=== PATIENT | male | born 1950 | race Caucasian/White ===

== ENCOUNTER 2020-03-17 08:14 | Outpatient (CLI) | payer MEDICARE, SELFPAY ==
--- NOTE | 2020-03-17 08:22 | CT_ITS ---
WS: [id number] CT HEAD NONCONTRAST HISTORY: HYPOCHLOREMIA, HYPONATREMIA, CIGARETTE SMOKER, WEIGHT LOSS TECHNIQUE: Contiguous axial imaging performed through the brain in 2.5 mm imaging. Bone and soft tiss ue windows. All CT scans at [facility] use at least one of these dose optimization techniq ues: automated exposure control; mA and/or kV adjustment per patient size (includes targeted exams wh ere dose is matched to clinical indication); or iterative reconstruction. DLP: 992.04 mGycm COMPARISON: None available. No acute intracranial hemorrhage, midline shift or mass effect. Moderate atrophy involving the cerebellum and cerebrum. No areas of decreased attenuation in the brai nstem or dylan. Very mild chronic microvascular ischemic changes in the white matter. No prior large t erritory infarct. Ventricles: Ventricles and extra-axial spaces are slightly prominent on the basis of central and per ipheral atrophy. Paranasal sinuses: As visualized are clear. Mastoid air cells: Well pneumatized. Calvarium and scalp: Skull is intact with no soft tissue edema or swelling. CT/CT head wo con* [id number] IMPRESSION: 1. Moderate atrophy and mild chronic ischemic changes. 2. No hemorrhage or edema to suggest underlying neoplasm by unenhanced CT. If symptoms persist consider follow-up MRI brain with contrast if there is no cont raindication.
--- NOTE | 2020-03-17 08:22 | CT_ITS ---
WS: [id number] CT CHEST WITH INTRAVENOUS CONTRAST HISTORY: Cough and short of breath. Weight loss. TECHNIQUE: Contiguous 5 mm axial imaging performed on the thorax. Coronal and sagittal reformats are submitted. All CT scans at [facility] use at least one of these dose optimization techniq ues: automated exposure control; mA and/or kV adjustment per patient size (includes targeted exams wh ere dose is matched to clinical indication); or iterative reconstruction. CONTRAST: Omnipaque 300; 95 mL IV. DLP: 664.66 mGycm COMPARISON: None available. Lungs and central airway: Severe hyperinflation and emphysema. Linear area of atelectasis or scar in the medial segment of the RIGHT middle lobe measures 1.7 x 0.6 cm. There is a small amount of adjacen t groundglass attenuation. Favor this is probably scar atelectasis but will need follow-up. There is a small amount of mucus and debris in the endobronchial airway. Pleura: Normal. No pleural effusion. Heart and pericardium: Normal size heart. No pericardial effusion. Mediastinum and claudia: No mediastinum or hilar adenopathy. Vessels: Mild atherosclerosis of the aorta but no aneurysm. Pulmonary artery size is less than aorta. Chest wall and lower neck: No soft tissue masses. Upper abdomen: Visualized upper abdomen demonstrates diffuse moderate hepatic steatosis. No adrenal m ass. LEFT renal hypodensities are too small to characterize. Moderate size hiatal hernia. Osseous structures: Mild thoracic spondylosis. No destructive bone lesions. CT/CT chest w con* [id number] IMPRESSION: 1. Severe emphysema. 2. Linear opacification medial segment RIGHT middle lobe measuring 1.7 x 0.6 c m. Favor this is probably an area of atelectasis and/or scar. No prior studies for comparison. Recommend follow-up chest CT in 3-6 months. 3. Moderate size hiatal hernia. 4. Hepatic steatosis.
[2020-03-17] MEDS: iohexol 300 mg/mL 100 mL Btl IV (09:03)
== END 2020-03-17 08:15 | disposition home or self-care (01) ==
LOC: RADWPI 08:20
PROVIDERS: Family Provider Nurse Practitioner Family; PCP Nurse Practitioner Family; Visit Provider Nurse Practitioner Family
DX: R63.4 Abnormal weight loss (principal); F17.210 Nicotine dependence, cigarettes, uncomplicated; E87.8 Other disorders of electrolyte and fluid balance, not elsewhere classified; E87.1 Hypo-osmolality and hyponatremia; I67.82 Cerebral ischemia; R05 Cough; R06.02 Shortness of breath; J43.9 Emphysema, unspecified; K44.9 Diaphragmatic hernia without obstruction or gangrene; K76.0 Fatty (change of) liver, not elsewhere classified
CPT/HCPCS: 70450; 71260; Q9967

== ENCOUNTER 2021-10-06 05:46 | Day surgery (SDC) | payer MEDICARE, SELFPAY ==
[2021-08-23 13:30] VITALS: BMI 19.8
--- NOTE | 2021-08-26 10:02 | ANE.PACU2 ---
Inpatient post-anesthesia follow up: Airway intact: Yes Vital signs: Temperature Pulse Rate Respiratory Rate Blood Pressure Pulse Oximetry Oxygen Delivery Me thod Oxygen Flow Rate Fraction of Inspir ed Oxygen Hydration adequate: Yes Nausea and vomiting: No Pain level: 1 Mental status: Baseline
[2021-10-01 12:40] VITALS: BMI 19.8
--- NOTE | 2021-10-06 06:05 | W.PM.OPSFHP ---
Same Day Surgery H&P Indication for Procedure/HPI DATE OF PROCEDURE: October 06, 2021 CHIEF COMPLAINT/INDICATIONFOR SURGICAL PROCEDURE: History of colon polyps PREOP DIAGNOSIS: History of colon polyps PLANNED PROCEDURE: Operation Date: 08/26/21 07:45 Proposed Procedures p Colonoscopy 01945 Z86.010(Not Applicable) - Aleksander Poole MD Operation Date: 10/06/21 07:00 Proposed Procedures p Colonoscopy 15244/ Z86.010(Not Applicable) - Aleksander Poole MD 06/10/2021 This is a pleasant 70 years old gentleman comes today escorted by his .? Has history of colon polyps and last colonoscopy was done about 8 years ago.? Patient also reports intermittent bleeding per rectum thinking that he may have some hemorrhoids.? Denies history of colon cancer.? Patient is referred to my practice to discuss potential colonoscopy for surveillance purposes 10/06/2021 Patient comes today for surveillance colonoscopy ROS All systems have been reviewed negative except as per the above or per problem list Medications/Allergies* Home Medications Medication Instructions Recorded Confirmed Type albuterol sulfate 90 mcg/actuation 2 puff INHALATION Q4H PRN g 03/08/21 10/01/21 History aerosol inhaler (ProAir HFA) alprazolam 0.5 mg tablet 0.5 mg PO DAILY 03/08/21 10/01/21 History amlodipine 10 mg tablet 10 mg PO DAILY 03/08/21 10/01/21 History Allergies/Adverse Reactions Allergy/AdvReac Type Severity Reaction Status Date / Time No Known Allergies Allergy Verified 06/11/21 17:18 Pertinent Exam Findings alert, oriented x 3, regular rate & rhythm and procedure specific exam findings (Abdominal examination nontender nondistended soft) Recommendations Surgery/Procedure today (Surveillance colonoscopy) Coding Level of Care Code Acute Slate Mixer for Gera Padron
[2021-10-06 06:08] VITALS: BP 153/103; PULSE 99; RESP 18; TEMP 36.1; O2SAT 98
[2021-10-06] MEDS: sodium chloride 0.9% 1,000 ML 30 ML IV (06:19)
--- NOTE | 2021-10-06 06:38 | ANES.PREANE2 ---
Pre-Anesthetic Assessment Height/Weight: Height 1.85 m Weight 68.039 kg Temp Pulse Resp BP Pulse Ox 97 F L 99 18 153/103 98 10/06/21 06:08 10/06/21 06:08 10/06/21 06:08 10/06/21 06:08 10/06/21 06:08 Preop Diagnosis: History of colon polyps Operation Date: 08/26/21 07:45 Proposed Procedures p Colonoscopy 49652 Z86.010(Not Applicable) - Aleksander Poole MD Operation Date: 10/06/21 07:00 Proposed Procedures p Colonoscopy 51368/ Z86.010(Not Applicable) - Aleksander Poole MD Familial anesthetic complications: none Was Beta Aidee taken within 24 hours: N/A Was Clonidine taken within 24 hours: N/A Last intake: Intake Last Liquid Date 10/06/21 Last Liquid Time 00:00 Last Solid Date 10/05/21 Last Solid Time 11:30 Social Alcohol (1 beer per day, 1 ppd) and Tobacco Exam alert and oriented x 3 Airway Submandibular: within normal limits Cervical ROM: within normal limits Mallampati: Class III Dentition: full History/ROS No significant history except as noted Pulmonary Chronic Obstructive Pulmonary Disease CV/HEM Hypertension None reported Hepatic None reported GI Gastroesophageal Reflux Disease Metabolic None reported Musc/skel None reported Neuropsych None reported Anesthetic Plan ASA status: 3 Anesthesia: Anesthesia Evaluation and MAC Risk of > 500 ml blood loss (7ml/kg in children): No Medications/Allergies Home Medications Medication Instructions Recorded Confirmed Last Taken Type albuterol sulfate 90 mcg/actuation 2 puff INHALATION Q4H PRN g 03/08/21 10/01/21 10/05/21 History aerosol inhaler (ProAir HFA) alprazolam 0.5 mg tablet 0.5 mg PO DAILY 03/08/21 10/01/21 10/05/21 History amlodipine 10 mg tablet 10 mg PO DAILY 03/08/21 10/01/21 10/05/21 History Allergies Allergy/AdvReac Type Severity Reaction Status Date / Time No Known Allergies Allergy Verified 06/11/21 17:18 Current Medications Generic Name Dose Route Start Last Admin Trade Name Freq PRN Reason Stop Dose Admin Sodium Chloride 1,000 mls @ 30 mls/hr 10/06/21 06:00 03/16/22 06:19 Sodium Chloride 0.9% IV 30 mls/hr .Q24H KYLEIGH Administration Data Anesthesia Cardiac Studies: No Data to Display
[2021-10-06 07:19] VITALS: BP 100/66; PULSE 88; RESP 20; TEMP 36.3; O2SAT 93
[2021-10-06 07:48] VITALS: BP 138/77; PULSE 90; RESP 20; TEMP 36.3; O2SAT 95
--- NOTE | 2021-10-06 12:20 | ANE.PACU2 ---
Inpatient post-anesthesia follow up: Airway intact: Yes Vital signs: Temperature 97.3 F Pulse Rate 90 Respiratory Rate 20 Blood Pressure 138/77 Pulse Oximetry 95 Oxygen Delivery Me thod Room Air Oxygen Flow Rate Fraction of Inspir ed Oxygen Hydration adequate: Yes Nausea and vomiting: No Pain level: 1 Mental status: Baseline
== END 2021-10-06 07:54 | disposition home or self-care (01) ==
PROVIDERS: PCP Nurse Practitioner Family; Visit Provider Surgery
PROC: 0DJD8ZZ Inspection of Lower Intestinal Tract, Via Natural or Artificial Opening Endoscopic (ICD-10-PCS; CPT 45378; principal; 2021-10-06 07:00)
DX: Z12.11 Encounter for screening for malignant neoplasm of colon (principal); Z86.010 Personal history of colon polyps; D12.2 Benign neoplasm of ascending colon; K57.30 Diverticulosis of large intestine without perforation or abscess without bleeding; J44.9 Chronic obstructive pulmonary disease, unspecified; I10 Essential (primary) hypertension; K21.9 Gastro-esophageal reflux disease without esophagitis
CPT/HCPCS: 45385; J2704; J7030

== ENCOUNTER → 2023-04-17 09:23 | Outpatient (BNVA) | payer MEDICARE, SELFPAY | PROVIDERS: PCP Nurse Practitioner Family; Visit Provider Nurse Practitioner Family | DX: A08.4 Viral intestinal infection, unspecified (principal); K57.31 Diverticulosis of large intestine without perforation or abscess with bleeding | CPT/HCPCS: 80053; 85025 ==

== ENCOUNTER 2023-09-23 23:09 | Emergency (ER) | payer MEDICARE, SELFPAY ==
[2023-09-23 23:29] VITALS: BP 128/75; PULSE 90; RESP 18; TEMP 36.5; O2SAT 94; BMI 19.6
--- NOTE | 2023-09-24 00:07 | ED_ITS ---
Documented by User: DENISE Mcdaniel 09/25/23 17:15 HPI - Male Genitourinary 2 General: Chief complaint: Urogenital-Male Stated complaint: Cant Urinate Time Seen by Provider: 09/23/23 23:50 Source: patient Mode of arrival: ambulatory Limitations: no limitations History of Present Illness: Patient is a 73-year-old male with past medical history of BPH who presents to the emergency department complaining of urinary hesitancy for the past couple weeks. Patient also notes severe abdominal distention and suprapubic pain. He states that he can only dribble when he goes to the bathroom, and sometimes is unable to go at all. He states that his bowel movements have remained normal, he denies any fevers, or other abnormal symptoms. He states that he recently had a urinalysis performed at his primary care's office, which was reportedly unremarkable for any urinary tract infections. He is not currently on any long- term therapy for his BPH, but states he has been in the past. Patient also states he has had a significantly decreased appetite lately. Associated symptoms: Deny dysuria, hematuria, nausea or vomiting Review of Systems 2 General: Reports: 10 or more systems reviewed and unremarkable except in HPI and below Const: Reports: change in appetite; Denies: fever(s), chills, change in weight or diaphoresis ENMT: Denies: throat pain or hoarseness Card: Denies: chest pain, palpitations or lightheadedness Resp: Denies: dyspnea, productive cough or wheezing GI: Reports: abdominal pain (Suprapubic); Denies: nausea, vomiting, diarrhea, constipation, bloating, change in stool character or hematochezia : Reports: difficulty urinating, urinary hesitancy, urinary dribbling and oliguria; Denies: flank pain, dysuria, urinary frequency, urinary urgency, hematuria or testicular pain Musc: Denies: neck pain or back pain Skin/Breast: Denies: rash or new lesions Neuro: Denies: headache(s) or dizziness PFSH ED 2 PFSH: Medical History BPH (benign prostatic hyperplasia) Physical Exam 2 Const: COMMON NORMALS: no acute distress, average body habitus, patient oriented x3, no limitations, healthy appearing, alert and well nourished G ENERAL APPEARANCE: cooperative and comfortable ORIENTATION/CONSCIOUSNESS: Yes awake HENMT: COMMON NORMALS: normocephalic, atraumatic, hearing grossly normal bilaterally, external ears normal, Normal external nose present, Normal nasal mucous membranes and turbinates present and moist oral mucous membranes HEAD & SCALP: normocephalic and atraumatic NOSE: Normal external nose present and Normal nasal mucous membranes and turbinates present EXTERNAL EAR: Yes external ears normal Eye: COMMON NORMALS: Equal, round and reactive pupils present, EOMs intact bilaterally, conjunctivae normal and normal visual mendoza by confrontation C ONJUNCTIVA: Yes conjunctivae normal PUPIL: Yes Equal, round and reactive pupils present Neck/C-Spine: COMMON NORMALS: full ROM, supple, no meningeal signs and no JVD Resp: COMMON NORMALS: normal respiratory effort, No retractions, No use of accessory muscles and clear to auscultation bilaterally AUSCULTATION: clear to auscultation bilaterally, no crackles, no rales, no rhonchi and no wheezes Cardio: COMMON NORMALS: no JVD, regular rate, regular rhythm, S1 normal heart sound present, S2 normal heart sound present, No gallops present (Cardio), No clicks present (Cardio), No murmurs present (Cardio), No rub (Cardio) and Peripheral pulses 2+ throughout RATE: regular rate RHYTHM: regular rhythm HEART SOUNDS: S1 normal heart sound present and S2 normal heart sound present PERIPHERAL PULSES: Peripheral pulses 2+ throughout GI: INSPECTION: No abdominal wall ecchymosis, No Anasarca and Yes abdominal distension AUSCULTATION: Yes normoactive bowel sounds PALPATION: Yes Firmness to palpation present (GI), Yes Tenderness to palpation present (GI) Details: other (Suprapubic), No Guarding due to palpation present (GI), No Rigid due to palpation and No Ascites present RECTAL EXAM: Yes deferred : COMMON NORMALS: Yes no CVA tenderness BLADDER/KIDNEY EXAM: Yes no CVA tenderness Back/Pelvis: COMMON NORMALS: no CVA tenderness Extremity: COMMON NORMALS: normal to inspection and full ROM Neuro: COMMON NORMALS: patient oriented x3, moves all extremities, no focal motor deficits and no sensory deficits noted SENSORIUM/ORIENTATION: Yes alert MENINGEAL SIGNS: Yes no meningeal signs Psych: COMMON NORMALS: mental status grossly normal, cooperative and speech normal SPEECH: Yes normal speech Skin: COMMON NORMALS: no rashes or lesions noted GENERAL SKIN EXAM: no rashes or lesions noted Course 2 Vital Signs: Vital signs: Vital Signs Temperature 97.7 F 09/24/23 03:57 Pulse Rate 97 09/24/23 03:57 Respiratory Rate 16 09/24/23 03:57 Blood Pressure 116/70 09/24/23 03:57 Pulse Oximetry 93 09/24/23 03:57 Oxygen Delivery Me thod Room Air 09/24/23 02:04 MDM - Male Lab Data 09/24/23 00:20 09/24/23 00:20 Radiology Impressions Abdomen/Pelvis CT 09/24/23 01:20 IMPRESSION: 1. There is considerable lobulated bladder wall thickening. Findings could reflect advanced trabeculation from chronic bladder outlet obstruction, but en plaque tumor is not excluded. No pelvic adenopathy. No bony destructive lesions. 2. Severe fatty infiltration of the liver with mild hepatomegaly. New line diverticulosis. No evidence of acute diverticulitis. Laboratory Results WBC 7.99 10^3/uL (3.29-11.43) 09/24/23 00:20 RBC 4.38 10^6/uL (3.85-5.65) 09/24/23 00:20 Hgb 15.40 g/dL (11.27-16.99) 09/24/23 00:20 Hct 43.0 % (37-53) 09/24/23 00:20 MCV 98.2 fl (82-101) 09/24/23 00:20 MCH 35.2 pg (27-33) H 09/24/23 00:20 MCHC 35.8 g/dL (30-55) 09/24/23 00:20 RDW 12.9 % (12.1-15.1) 09/24/23 00:20 Plt Count 239 10^3/cmm (157-399) 09/24/23 00:20 MPV 9.7 fL (7.4-10.4) 09/24/23 00:20 Neut % (Auto) 70.7 % 09/24/23 00:20 Lymph % (Auto) 17.5 % 09/24/23 00:20 [place] % (Auto) 9.9 % 09/24/23 00:20 Eos % (Auto) 1.1 % 09/24/23 00:20 Baso % (Auto) 0.4 % 09/24/23 00:20 Neut # (Auto) 5.65 10^3/uL (1.8-7.7) 09/24/23 00:20 Lymph # (Auto) 1.4 10^3/uL (0.8-4.8) 09/24/23 00:20 [place] # (Auto) 0.8 10^3/uL (0.2-0.9) 09/24/23 00:20 Eos # (Auto) 0.1 10^3/uL (0.0-0.8) 09/24/23 00:20 Baso # (Auto) 0.0 10^3/uL (0.0-0.1) 09/24/23 00:20 Nucleated RBC % (auto) 0 % 09/24/23 00:20 Nucleated RBCs # 0.0 /100WBC 09/24/23 00:20 Sodium 122 mmol/L (136-145) L 09/24/23 00:20 Potassium 3.6 mmol/L (3.5-5.1) 09/24/23 00:20 Chloride 82 mmol/L (98-107) L 09/24/23 00:20 Carbon Dioxide 19 mmol/L (22-29) L 09/24/23 00:20 Anion Gap 24.6 (5-19) H 09/24/23 00:20 BUN 3 mg/dL (8-23) L 09/24/23 00:20 Creatinine 0.5 mg/dL (0.7-1.2) L 09/24/23 00:20 GFR Calculation Not Reportable 09/24/23 00:20 Glucose 104 mg/dL (65-115) 09/24/23 00:20 Calculated Osmolality 251 mOsm/kg (285-295) L 09/24/23 00:20 Calcium 8.8 mg/dL (8.5-10.5) 09/24/23 00:20 Total Bilirubin 3.2 mg/dL (0.15-1.2) H 09/24/23 00:20 AST 95 U/L (0-40) H 09/24/23 00:20 ALT 40 U/L (0-41) 09/24/23 00:20 Alkaline Phosphatase 131 U/L (40-130) H 09/24/23 00:20 Total Protein 7.5 g/dL (6.6-8.7) 09/24/23 00:20 Albumin 4.3 g/dL (3.5-5.2) 09/24/23 00:20 Globulin 3.2 g/dL (1.3-4.6) 09/24/23 00:20 Urine Color Yellow (Yellow) 09/24/23 00:48 Urine Appearance Clear (CLEAR) 09/24/23 00:48 Urine pH 7 (5-7) 09/24/23 00:48 Ur Specific [place] 1.005 (1.005-1.030) 09/24/23 00:48 Urine Protein Neg (Negative) 09/24/23 00:48 Urine Glucose (UA) Norm (Normal) 09/24/23 00:48 Urine Ketones 1+ (Negative) H 09/24/23 00:48 Urine Blood Neg (Negative) 09/24/23 00:48 Urine Nitrate Negative (Negative) 09/24/23 00:48 Urine Bilirubin Neg (Negative) 09/24/23 00:48 Urine Urobilinogen Norm mg/dL (Negative) 09/24/23 00:48 Ur Leukocyte Esterase Negative (Negative) 09/24/23 00:48 XR interpretation done by ED provider, pending radiology final review Discharge Plan Discharge Patient Disposition: Home Clinical Impression: Acute retention of urine, Acute hyponatremia Condition: Stable Prescriptions: No Action albuterol sulfate [ProAir HFA] 90 mcg/actuation HFA aerosol inhaler 2 puff inhalation Q4H PRN (Reason: Shortness Of Breath) alprazolam 0.5 mg tablet 0.5 mg PO DAILY amlodipine 10 mg tablet 10 mg PO DAILY Discharge Orders: Discharge ED (Routine); Ordered 09/24/23 Ordered By: Moustapha Mcfarland Referrals: Carline Meng [Primary Care Provider] - 1-3 days Patient Instructions: Urinary Retention in Men (ED), Hyponatremia (ED), Loera Catheter Placement and Care (ED), Opioid Safety, Pain Management Activity Restrictions/Additional Instructions: Your catheter should stay in until you are seen by urology. Case management will make you an appointment with urology. You should hear from them this coming week. Return for any problems. Follow-up with your doctor in 48 to 72 hours, as you will need a repeat sodium level to make sure it is coming up appropriately. Coding Level of Care Code ED Filtration Operator for Dongg Fwd Documented by User: Moustapha Mcfarland, 10/07/23 18:16 HPI - Male Genitourinary 2 General: Chief complaint: Urogenital-Male Stated complaint: Cant Urinate Time Seen by Provider: 09/23/23 23:50 PFSH ED 2 PFSH: Medical History BPH (benign prostatic hyperplasia) Course 2 Vital Signs: Vital signs: Vital Signs Temperature 97.7 F 09/24/23 03:57 Pulse Rate 97 09/24/23 03:57 Respiratory Rate 16 09/24/23 03:57 Blood Pressure 116/70 09/24/23 03:57 Pulse Oximetry 93 09/24/23 03:57 Oxygen Delivery Me thod Room Air 09/24/23 02:04 MDM - Male Medical Decision Making 73-year-old male checked out to me at shift change. He has had 5 L of urine out after having Loera placed here in the ER. CBC is normal. His creatinine is 0.5. CT does not show any acute abnormality otherwise. Pain is improved. He will be allowed discharge. Urology follow-up. Loera care. Return for any concerns. Lab Data 09/24/23 00:20 09/24/23 00:20 Radiology Impressions Abdomen/Pelvis CT 09/24/23 01:20 IMPRESSION: 1. There is considerable lobulated bladder wall thickening. Findings could reflect advanced trabeculation from chronic bladder outlet obstruction, but en plaque tumor is not excluded. No pelvic adenopathy. No bony destructive lesions. 2. Severe fatty infiltration of the liver with mild hepatomegaly. New line diverticulosis. No evidence of acute diverticulitis. Laboratory Results WBC 7.99 10^3/uL (3.29-11.43) 09/24/23 00:20 RBC 4.38 10^6/uL (3.85-5.65) 09/24/23 00:20 Hgb 15.40 g/dL (11.27-16.99) 09/24/23 00:20 Hct 43.0 % (37-53) 09/24/23 00:20 MCV 98.2 fl (82-101) 09/24/23 00:20 MCH 35.2 pg (27-33) H 09/24/23 00:20 MCHC 35.8 g/dL (30-55) 09/24/23 00:20 RDW 12.9 % (12.1-15.1) 09/24/23 00:20 Plt Count 239 10^3/cmm (157-399) 09/24/23 00:20 MPV 9.7 fL (7.4-10.4) 09/24/23 00:20 Neut % (Auto) 70.7 % 09/24/23 00:20 Lymph % (Auto) 17.5 % 09/24/23 00:20 [place] % (Auto) 9.9 % 09/24/23 00:20 Eos % (Auto) 1.1 % 09/24/23 00:20 Baso % (Auto) 0.4 % 09/24/23 00:20 Neut # (Auto) 5.65 10^3/uL (1.8-7.7) 09/24/23 00:20 Lymph # (Auto) 1.4 10^3/uL (0.8-4.8) 09/24/23 00:20 [place] # (Auto) 0.8 10^3/uL (0.2-0.9) 09/24/23 00:20 Eos # (Auto) 0.1 10^3/uL (0.0-0.8) 09/24/23 00:20 Baso # (Auto) 0.0 10^3/uL (0.0-0.1) 09/24/23 00:20 Nucleated RBC % (auto) 0 % 09/24/23 00:20 Nucleated RBCs # 0.0 /100WBC 09/24/23 00:20 Sodium 122 mmol/L (136-145) L 09/24/23 00:20 Potassium 3.6 mmol/L (3.5-5.1) 09/24/23 00:20 Chloride 82 mmol/L (98-107) L 09/24/23 00:20 Carbon Dioxide 19 mmol/L (22-29) L 09/24/23 00:20 Anion Gap 24.6 (5-19) H 09/24/23 00:20 BUN 3 mg/dL (8-23) L 09/24/23 00:20 Creatinine 0.5 mg/dL (0.7-1.2) L 09/24/23 00:20 GFR Calculation Not Reportable 09/24/23 00:20 Glucose 104 mg/dL (65-115) 09/24/23 00:20 Calculated Osmolality 251 mOsm/kg (285-295) L 09/24/23 00:20 Calcium 8.8 mg/dL (8.5-10.5) 09/24/23 00:20 Total Bilirubin 3.2 mg/dL (0.15-1.2) H 09/24/23 00:20 AST 95 U/L (0-40) H 09/24/23 00:20 ALT 40 U/L (0-41) 09/24/23 00:20 Alkaline Phosphatase 131 U/L (40-130) H 09/24/23 00:20 Total Protein 7.5 g/dL (6.6-8.7) 09/24/23 00:20 Albumin 4.3 g/dL (3.5-5.2) 09/24/23 00:20 Globulin 3.2 g/dL (1.3-4.6) 09/24/23 00:20 Urine Color Yellow (Yellow) 09/24/23 00:48 Urine Appearance Clear (CLEAR) 09/24/23 00:48 Urine pH 7 (5-7) 09/24/23 00:48 Ur Specific [place] 1.005 (1.005-1.030) 09/24/23 00:48 Urine Protein Neg (Negative) 09/24/23 00:48 Urine Glucose (UA) Norm (Normal) 09/24/23 00:48 Urine Ketones 1+ (Negative) H 09/24/23 00:48 Urine Blood Neg (Negative) 09/24/23 00:48 Urine Nitrate Negative (Negative) 09/24/23 00:48 Urine Bilirubin Neg (Negative) 09/24/23 00:48 Urine Urobilinogen Norm mg/dL (Negative) 09/24/23 00:48 Ur Leukocyte Esterase Negative (Negative) 09/24/23 00:48 Discharge Plan Discharge Patient Disposition: Home Clinical Impression: Acute retention of urine, Acute hyponatremia Condition: Stable Prescriptions: No Action albuterol sulfate [ProAir HFA] 90 mcg/actuation HFA aerosol inhaler 2 puff inhalation Q4H PRN (Reason: Shortness Of Breath) alprazolam 0.5 mg tablet 0.5 mg PO DAILY amlodipine 10 mg tablet 10 mg PO DAILY Discharge Orders: Discharge ED (Routine); Ordered 09/24/23 Ordered By: Moustapha Mcfarland Referrals: Carline Meng [Primary Care Provider] - 1-3 days Patient Instructions: Urinary Retention in Men (ED), Hyponatremia (ED), Loera Catheter Placement and Care (ED), Opioid Safety, Pain Management Activity Restrictions/Additional Instructions: Your catheter should stay in until you are seen by urology. Case management will make you an appointment with urology. You should hear from them this coming week. Return for any problems. Follow-up with your doctor in 48 to 72 hours, as you will need a repeat sodium level to make sure it is coming up appropriately. Coding Level of Care Code ED Filtration Operator for Gera Padron
[2023-09-24 00:37] LABS: Basophils % 0.4 %; Eosinophils # 0.1 10^3/uL (0.0-0.8); Eosinophils % 1.1 %; Lymphocytes # 1.4 10^3/uL (0.8-4.8); Lymphocytes % 17.5 %; Mean Corpuscular HGB Conc 35.8 g/dL (30-55); Mean Corpuscular Hemoglobin 35.2 pg (27-33); Mean Corpuscular Volume 98.2 fl (82-101); Mean Platelet Volume 9.7 fL (7.4-10.4); Monocytes # 0.8 10^3/uL (0.2-0.9); Monocytes % 9.9 %; Neutrophils # 5.65 10^3/uL (1.8-7.7); Neutrophils % 70.7 %; Nucleated Red Blood Cells % 0 %; Platelet Count 239 10^3/cmm (157-399); Red Blood Count 4.38 10^6/uL (3.85-5.65); Red Cell Distribution Width 12.9 % (12.1-15.1); White Blood Count 7.99 10^3/uL (3.29-11.43)
[2023-09-24 00:45] LABS: Alanine Aminotransferase 40 U/L (0-41); Albumin Level 4.3 g/dL (3.5-5.2); Alkaline Phosphatase 131 U/L (40-130); Anion Gap 24.6 (5-19); Aspartate Amino Transferase 95 U/L (0-40); Blood Urea Nitrogen 3 mg/dL (8-23); Calcium 8.8 mg/dL (8.5-10.5); Carbon Dioxide 19 mmol/L (22-29); Chloride 82 mmol/L (98-107); Globulin 3.2 g/dL (1.3-4.6); Glucose 104 mg/dL (65-115); Osmolality Calculated 251 mOsm/kg (285-295); Potassium 3.6 mmol/L (3.5-5.1); Sodium 122 mmol/L (136-145); Total Bilirubin 3.2 mg/dL (0.15-1.2); Total Protein 7.5 g/dL (6.6-8.7)
[2023-09-24 00:53] LABS: Add Urine Microscopic? NO; Charge for UA Resulting for Rev
[2023-09-24 00:55] LABS: Bilirubin Urine Neg (Negative); Blood Urine Neg (Negative); Glucose Urine UA Norm (Normal); Ketones Urine 1+ (Negative); Leukocyte Esterase Urine Negative (Negative); Nitrate Urine Negative (Negative); Protein Urine Neg (Negative); Specific Gravity, Urine 1.005 (1.005-1.030); Urine Appearance Clear (CLEAR); Urine Color Yellow (Yellow); Urobilinogen Urine Norm (Negative); pH Urine 7 (5-7)
--- NOTE | 2023-09-24 01:20 | CTR_ITS ---
PROCEDURE INFORMATION: Exam: CT Abdomen And Pelvis With Contrast Exam date and time: 09/24/2023 1:41 AM Age: 73 years old Clinical indication: Abdominal pain; Localized; Lower; Additional info: Abd pain, urinary retention TECHNIQUE: Imaging protocol: Computed tomography of the abdomen and pelvis with contrast. Radiation optimization: All CT scans at this facility use at least one of these dose optimization techniques: automated exposure control; mA and/or kV adjustment per patient size (includes targeted exams where dose is matched to clinical indication); or iterative reconstruction. Contrast material: OMNI 350; Contrast volume: 100 ml; Contrast route: INTRAVENOUS (IV); COMPARISON: CT chest w con* [id number] 03/17/2020 8:57 AM RADIATION DOSE METRICS: Total DLP (mGy-cm): 502 FINDINGS: Tubes, catheters and devices: Catheter is in satisfactory position in the bladder lumen. Lungs: There is considerable bronchiectasis at each lung base with scarring or atelectasis in the right posterior lung base. Bronchiectasis has progressed when compared to prior exam in 2019. Pleural spaces: No pleural fluid. Heart: Heart size is normal. Diaphragm: Tiny sliding hiatal hernia. Liver: There is severe fatty infiltration of the liver. Liver measures 16.5 cm in length. Gallbladder and bile ducts: No regional inflammation. No calcified stones. No ductal dilation. Pancreas: Normal. No ductal dilation. Spleen: Spleen measures 8.7 cm in length. Adrenal glands: Normal configuration. Kidneys and ureters: Kidneys enhance symmetrically without evidence of solid mass, obstruction, or infection. Several bilateral cysts are stable from priors. Stomach and bowel: Decompressed stomach. Normal caliber small bowel. There is diverticulosis in the distal colon without evidence of acute diverticulitis. Appendix: Appendix is not visualized as a discrete structure but there is no inflammation at the cecal base. Intraperitoneal space: No free air. No significant fluid collection. Vasculature: Moderate aortoiliac calcific atherosclerosis without aneurysm. Lymph nodes: No enlarged lymph nodes. Urinary bladder: The urinary bladder wall is thickened and lobulated, and appears patulous. Reproductive: Prostate is normal in size. Prominent seminal vesicles bilaterally. Bones/joints: Moderate fatty atrophy of skeletal muscle. Severe subjective bony demineralization. No evidence of acute fracture. Soft tissues: Unremarkable. CT/CT abdomen pelvis w con* [id number] IMPRESSION: 1. There is considerable lobulated bladder wall thickening. Findings could reflect advanced trabeculation from chronic bladder outlet obstruction, but en plaque tumor is not excluded. No pelvic adenopathy. No bony destructive lesions. 2. Severe fatty infiltration of the liver with mild hepatomegaly. New line diverticulosis. No evidence of acute diverticulitis.
[2023-09-24] MEDS: iohexol 350 mg/mL 500 mL Btl (per mL) IV (01:49)
[2023-09-24 02:04] VITALS: BP 116/70; PULSE 97; RESP 16; O2SAT 93
--- NOTE | 2023-09-24 02:04 | PC.NURSE ---
UA output out of [place] at this time: 5300 mL
[2023-09-24] MEDS: ketorolac 30 mg/mL INJ 15 MG IVP (02:49)
[2023-09-24 03:57] VITALS: BP 116/70; PULSE 97; RESP 16; TEMP 36.5; O2SAT 93
--- NOTE | 2023-09-26 15:10 | PC.SOCIAL ---
Urology Referral Patient reports that he just left his PCP office and she is working on Urology referral.
--- NOTE | 2023-10-04 12:26 | DCPLANNER ---
Patient's called today upset - I have resent referral to [facility] in [place].
--- NOTE | 2023-10-04 13:01 | DCPLANNER ---
Called [facility] to verify they have received referral- Spoke to Beckie -Patient is qued to get scheduled.
== END 2023-09-24 03:59 | disposition home or self-care (01) ==
PROVIDERS: Emergency Provider Physician Assistant; PCP Nurse Practitioner Family
DX: R33.9 Retention of urine, unspecified (principal); E87.1 Hypo-osmolality and hyponatremia
CPT/HCPCS: 36415; 51702; 51798; 74177; 80053; 81003; 85025; 96374; 99285; J1885; Q9967